=== PATIENT | female | born 1985 | race Caucasian/White ===

== ENCOUNTER 2019-06-13 11:29 | Outpatient (CLI) | payer MEDICAID ==
[~2019-06-13] VITALS: Ht 160 cm; Wt 75.7 kg
[~2019-06-13 11:29] MED LIST: PREN-93 PO
[2019-06-13 11:40] VITALS: BP 116/66; PULSE 103; RESP 18; Ht 160 cm; Wt 75.7 kg
== END 2019-06-13 12:20 | disposition home or self-care (01) ==
LOC: OBT 11:29 → L-D 11:29 → OBT 12:20
PROVIDERS: ATTEND Obstetrics & Gynecology
DX: O26.893 Other specified pregnancy related conditions, third trimester (principal); Z3A.32 32 weeks gestation of pregnancy
CPT/HCPCS: G0463